=== PATIENT | female | born 1975 | race Caucasian/White ===

== ENCOUNTER 2019-09-07 09:09 | Day surgery (SDC) | payer OTHER ==
[2019-09-02 12:21] LABS: BASOPHILS % (AUTO) 0.6 % (0-1); EOSINOPHILS # (AUTO) 0.1 X10'3 (0-0.9); EOSINOPHILS % (AUTO) 1.5 % (0-6); LYMPHOCYTES # (AUTO) 1.7 X10'3 (1.1-4.8); LYMPHOCYTES % (AUTO) 26.8 % (21-51); MEAN CORPUSCULAR HEMOGLOBIN 30.3 PG (27.0-31.0); MEAN CORPUSCULAR VOLUME 91.7 FL (78-98); MEAN PLATELET VOLUME 9.8 FL (7.4-10.4); MONOCYTES # (AUTO) 0.5 X10'3 (0-0.9); NEUTROPHILS # (AUTO) 4.1 X10'3 (1.8-7.7); NEUTROPHILS % (AUTO) 63.1 % (42-75); PRE OP HEMATOCRIT 39.4 % (35.0-45.0); PRE OP PLATELET COUNT 255 X10'3 (140-440)
[2019-09-02 12:24] LABS: CLARITY,URINE CLEAR (Clear); COLOR,URINE YELLOW (Yellow); GLUCOSE, URINE NEGATIVE (Neg); KETONES,URINE NEGATIVE (Neg); LEUKOCYTE ESTERASE ,URINE NEGATIVE (Neg); NITRITES, URINE NEGATIVE (Neg); OCCULT BLOOD,URINE NEGATIVE (Neg); PROTEIN,URINE NEGATIVE (Neg); UA COLLECTION TYPE CLN CATCH MIDSTREAM; UROBILINOGEN,URINE 0.2 E.U/dL (0.2-1.0)
[2019-09-02 12:35] LABS: ALBUMIN 4.2 G/DL (3.4-5.0); ALBUMIN/GLOBULIN RATIO 1.2 (1.1-1.5); ALKALINE PHOSPHATASE 72 IU/L (46-116); BLOOD UREA NITROGEN 11 MG/DL (7-18); BUN/CREATININE RATIO 12.5 (6.6-38.0); CALCIUM 8.4 MG/DL (8.5-10.1); CHLORIDE 102 MMOL/L (99-107); CREATININE 0.88 MG/DL (0.40-0.90); PRE OP ALT 27 U/L (30-65); PRE OP ANION GAP 9 (8-16); PRE OP AST 19 U/L (10-37); PRE OP BILIRUB, TOTAL 0.4 MG/DL (0.0-1.0); PRE OP GLUCOSE 88 MG/DL (70-104); PRE OP POTASSIUM 4.3 MMOL/L (3.4-5.1); PRE OP SODIUM 137 MMOL/L (135-145); TOTAL CARBON DIOXIDE 26.5 MMOL/L (24-32); TOTAL PROTEIN 7.6 G/DL (6.4-8.2); eGFR 70 ML/MIN
[2019-09-02 12:48] LABS: HCG SERUM QL NEGATIVE
[~2019-09-07] VITALS: Ht 152.4 cm; Wt 56.4 kg
[2019-09-07] VITALS (8 sets, daily range): BP systolic 107–140; BP diastolic 59–86
[~2019-09-07 09:09] MED LIST: ACET-1008 PO; IBUPROFEN; OMEP-50 PO; clindamycin-Cleocin 900mg/D5W 50 ML IV ONE; famotidine 20mg tablet PO ONE; ringers solution, lacted 1,000 ML IV SCH
[2019-09-07] MEDS ORDERED: scopolamine 1.5mg patch.TD72 TD ONE (11:20)
[2019-09-07] MEDS ORDERED: BUPIVAcaine/PF 2.5 mg/ml (0.25%) 30ml vial ONE (11:41)
[2019-09-07] MEDS ORDERED: ceFAZolin 1000mg inj ONE (11:41)
[2019-09-07] MEDS ORDERED: acetaminophen 1,000mg/100ml IV 100 ML IV PRN (12:20)
[2019-09-07] MEDS ORDERED: meperidine/PF 25mg/ml syringe IV PRN ×2 (12:20)
[2019-09-07] MEDS ORDERED: hydrALAZINE 20mg/ml inj. IV PRN (12:20)
[2019-09-07] MEDS ORDERED: morphine 2 MG/ML inj. syringe IV PRN (12:20)
[2019-09-07] MEDS ORDERED: ringers solution, lacted 1,000 ML IV SCH (12:20)
[2019-09-07] MEDS ORDERED: morphine 4 MG/ML inj SYRINge IV PRN (12:20)
[2019-09-07] MEDS ORDERED: labetalol 20mg/4ml (5mg/ml) syringe IV PRN (12:20)
[2019-09-07] MEDS ORDERED: ondansetron/PF 4mg/2ml inj IV PRN (12:20)
[2019-09-07] MEDS ORDERED: proCHLORperazine 10 MG/2 ml inj IV PRN (12:20)
[2019-09-07] MEDS ORDERED: midazolam 2 mg/2 ml injection ONE (12:26)
[2019-09-07] MEDS ORDERED: sevoflurane 250ml liquid IH ONE (12:30)
[2019-09-07] MEDS ORDERED: fentaNYL /PF 50mcg/ml 5ml ampule ONE (12:38)
[2019-09-07] MEDS ORDERED: LIDOcaine 2% 5ml jelly ONE (12:38)
[2019-09-07] MEDS ORDERED: dexamethasone sod phosphate 4mg/ml inj. ONE (12:47)
[2019-09-07] MEDS ORDERED: ondansetron/PF 4mg/2ml inj ONE (12:47)
[2019-09-07] MEDS ORDERED: LIDOcaine 2% (20mg/ml) 5ml vial ONE (12:48)
[2019-09-07] MEDS ORDERED: rocuronium 10mg/ml inj IV ONE (12:48)
[2019-09-07] MEDS ORDERED: propofol inj 20 ML IV ONE (12:48)
[2019-09-07] MEDS ORDERED: glycopyrrolate 0.2mg/ml inj ONE (13:12)
[2019-09-07] MEDS ORDERED: 0.9 % SODIUM CHLORIDE 10 ML VIAL ONE (13:12)
[2019-09-07] MEDS ORDERED: neostigmine methylsulfate 1 MG/ML 10ml vial ONE (13:12)
[2019-09-07] MEDS ORDERED: ePHEDrine 50MG/ML INJ. ONE (13:13)
--- NOTE | 2019-09-07 13:29 | NUR ---
Received from OR via [facility] , accompanied by Anesthesiologist FREDDIE and report given by Anesthesiolgist. PATIENT WITH 20G PIV IN RIGHT UE RUNING LR AT 100. DENIES PAIN, 3 ABDOMINAL BANDAIDS PRESENT. NO DRAINAGE. VSS. 10L MASK ON WITH 100% SATURATIONS. Addendum: 09/07/19 at 1335 by Richmond Escamilla RN, RN Amended: Links added.
[2019-09-07] MEDS: meperidine/PF 25mg/ml syringe IV PRN ×2 (13:55→14:13)
--- NOTE | 2019-09-07 14:39 | NUR ---
All dc criteria for discharge home has been met. IV taken out without complications. All questions answered regarding dc paperwork. Vss. Significant other present to take patient home. Dressings cdi and vital signs stable. Taken out via wheelchair to personal vehicle where patient taken home by family/friend. MOTHER IN LAW DROVE PATIENT HOME. Addendum: 09/07/19 at 1449 by Richmond Escamilla RN, RN Amended: Links added.
== END 2019-09-07 14:39 | disposition home or self-care (01) ==
LOC: PAS 09:09
PROVIDERS: ATTEND Surgery
DX: K81.1 Chronic cholecystitis (principal); K21.9 Gastro-esophageal reflux disease without esophagitis; Z87.442 Personal history of urinary calculi; Z88.2 Allergy status to sulfonamides; Z88.1 Allergy status to other antibiotic agents; Z88.8 Allergy status to other drugs, medicaments and biological substances; Z79.899 Other long term (current) drug therapy; Z79.01 Long term (current) use of anticoagulants; Z87.891 Personal history of nicotine dependence; Z98.890 Other specified postprocedural states; Z11.59 Encounter for screening for other viral diseases
CPT/HCPCS: 36415; 47562; 80053; 81003; 82948; 84703; 85025; 87635; J0690; J1100; J2001; J2175; J2250; J2270; J2405; J2704; J2710; J3010; J3490; J7120; A4215; A4618; A7000